=== PATIENT | male | born 1955 | race Caucasian/White ===

== ENCOUNTER 2020-04-16 12:44 | Emergency (ER) | payer OTHER, MEDICARE ==
[~2020-04-16] VITALS: Ht 175.3 cm; Wt 88.5 kg
[2020-04-16] MEDS ORDERED: ISRADIPINE2.5 MG PO (13:05)
[2020-04-16] MEDS ORDERED: LEVSIN0.125 MG PO (13:08)
[2020-04-16] MEDS ORDERED: LEXAPRO20 MG PO ×2 (13:08→13:24)
[2020-04-16] MEDS ORDERED: LOSARTAN POTAS100 MG PO (13:09)
[2020-04-16] MEDS ORDERED: LUNESTA3 MG PO (13:09)
[2020-04-16] MEDS ORDERED: HYDROCHLOROTH12.5 M1 PO (13:10)
[2020-04-16] MEDS ORDERED: ISRADIPINE5 MG PO (13:10)
[2020-04-16] MEDS ORDERED: LIPITOR80 MG PO (13:10)
[2020-04-16] MEDS ORDERED: SENNA PLUS 8.61 EACH PO (13:10)
[2020-04-16] MEDS ORDERED: VIAGRA100 MG PO (13:11)
[2020-04-16] MEDS ORDERED: MYRBETRIQ25 MG PO (13:12)
[2020-04-16] MEDS ORDERED: TRAZODONE 150150 M1 PO (13:13)
[2020-04-16] MEDS ORDERED: MYSOLINE50 MG PO (13:23)
[2020-04-16] MEDS ORDERED: TOPROL XL25 MG PO (13:24)
[2020-04-16] MEDS ORDERED: HYOSCYAMINE0.125 MG PO (13:25)
[2020-04-16] MEDS ORDERED: ALPRAZOLAM0.5 M2 PO (13:26)
[2020-04-16] MEDS ORDERED: CONCERTA36 M1 PO (13:26)
[2020-04-16 13:27] LABS: URINE BILIRUBIN NEGATIVE (Negative); URINE BLOOD NEGATIVE (Negative); URINE CLARITY CLEAR; URINE COLOR YELLOW; URINE GLUCOSE-RANDOM* NEGATIVE (Negative); URINE KETONES NEGATIVE (Negative); URINE LEUKOCYTES-REFLEX NEGATIVE (Negative); URINE NITRITE-REFLEX NEGATIVE (Negative); URINE PROTEIN (DIPSTICK) NEGATIVE (Negative); URINE SPECIFIC GRAVITY 1.025 (1.005-1.035); URINE UROBILINOGEN 0.2 E.U./dl (0.2-1.0)
[2020-04-16] MEDS ORDERED: NORFLEX100 MG PO (13:56)
[2020-04-16] MEDS ORDERED: NAPROSYN500 MG PO (13:56)
[2020-04-16 14:10] VITALS: BP 133/62
== END 2020-04-16 14:10 | disposition home or self-care (01) ==
LOC: ER 12:44
PROVIDERS: Physician Assistant
DX: S39.012A Strain of muscle, fascia and tendon of lower back, initial encounter (principal); M25.551 Pain in right hip; M76.821 Posterior tibial tendinitis, right leg; Z87.891 Personal history of nicotine dependence; Z79.899 Other long term (current) drug therapy; X58.XXXA Exposure to other specified factors, initial encounter; Y93.89 Activity, other specified; Y92.89 Other specified places as the place of occurrence of the external cause; Y99.8 Other external cause status